=== PATIENT | female | born 1985 | race American Indian/Alaskan Native ===

== ENCOUNTER 2018-03-13 15:56 | Emergency (ER) | payer SELFPAY ==
[2018-03-13 16:33] VITALS: BP 147/93
--- NOTE | 2018-03-13 17:18 | Emergency Department Report ---
ED Female HPI - General Chief complaint: Urogenital-Female Stated complaint: VAGINA BURNING Time Seen by Provider: 03/13/18 17:16 Source: patient Mode of arrival: Ambulatory Limitations: No Limitations - History of Present Illness Initial comments: This is a 32-year-old female nontoxic, well nourished in appearance, no acute signs of distress presents to the ED with c/o of vaginal discharge and dysuria x 1 week. Patient stated she was seen in [place] in her PCP office and was called today with positive gonorrhea. Patient denies any vaginal ulcers or lesions. Patient denies any nausea, vomiting, chest pain, shortness of breathe , fever, chills, headache, back pain, numbness, tingling, stiff neck. Patient denies any other urinary symptoms. Patient states allergies to penicillin with past medical history of hypertension. MD Complaint: dysuria, possible STD -: week(s) (1) Radiation: non-radiating Severity: mild Severity scale (0 -10): 3 Quality: burning Consistency: constant Improves with: none Worsens with: urination Are you Now?: No Associated Symptoms: vaginal discharge, dysuria. denies: vaginal bleeding, abdominal pain, nausea/vomiting, fever/chills, headaches, loss of appetite, hematuria, rash, seizure, shortness of breath, syncope, weakness - Related Data Sexually active: Yes Previous Rx's Medication Instructions Recorded Last Taken Type Sulfamethoxazole/Trimethoprim 1 each PO BID #14 tablet 03/13/18 Unknown Rx [Bactrim DS TAB] Allergies Allergy/AdvReac Type Severity Reaction Status Date / Time Penicillins AdvReac Hives Verified 03/13/18 16:35 ED Review of Systems ROS: Stated complaint: VAGINA BURNING Other details as noted in HPI Constitutional: denies: chills, fever Eyes: denies: eye pain, eye discharge, vision change ENT: denies: ear pain, throat pain Respiratory: denies: cough, shortness of breath, wheezing Cardiovascular: denies: chest pain, palpitations Endocrine: no symptoms reported Gastrointestinal: denies: abdominal pain, nausea, diarrhea Genitourinary: dysuria, discharge. denies: urgency, frequency, hematuria Musculoskeletal: denies: back pain, joint swelling, arthralgia Skin: denies: rash, lesions Neurological: denies: headache, weakness, paresthesias Psychiatric: denies: anxiety, depression Hematological/Lymphatic: denies: easy bleeding, easy bruising ED Past Medical Hx - Past Medical History Previous Medical History?: Yes Hx Hypertension: Yes - Surgical History Past Surgical History?: No - Social History Smoking Status: Never Smoker Substance Use Type: Alcohol - Medications Home Medications: Home Medications Medication Instructions Recorded Confirmed Last Taken Type Sulfamethoxazole/Trimethoprim 1 each PO BID #14 tablet 03/13/18 Unknown Rx [Bactrim DS TAB] ED Physical Exam - General Limitations: No Limitations General appearance: alert, in no apparent distress - Head Head exam: Present: atraumatic, normocephalic - Eye Eye exam: Present: normal appearance Pupils: Present: normal accommodation - ENT ENT exam: Present: normal exam, mucous membranes moist - Neck Neck exam: Present: normal inspection, full ROM. Absent: tenderness, meningismus, lymphadenopathy - Respiratory Respiratory exam: Present: normal lung sounds bilaterally. Absent: respiratory distress, wheezes, rales, rhonchi, stridor, chest wall tenderness, accessory muscle use, decreased breath sounds, prolonged expiratory - Cardiovascular Cardiovascular Exam: Present: regular rate, normal rhythm, normal heart sounds. Absent: bradycardia, tachycardia, irregular rhythm, systolic murmur, diastolic murmur, rubs, gallop - GI/Abdominal GI/Abdominal exam: Present: soft, normal bowel sounds. Absent: distended, tenderness, guarding, rebound, rigid, diminished bowel sounds - Rectal Rectal exam: Present: deferred - External exam: Present: normal external exam, other (precinct commanding officer Trudy RN present during exam). Absent: erythema, swelling, lesions, lacerations, ecchymosis, bleeding Speculum exam: Present: normal speculum exam, cervical discharge, other ( precinct commanding officer Trudy RN present during exam). Absent: erythema, vaginal discharge, vaginal bleeding, foreign body, tissue, laceration Bi-manual exam: Present: normal bi-manual exam, other (precinct commanding officer Trudy RN present during exam). Absent: cervical motion tendernes, adnexal tenderness, adnexal mass, uterine enlargement, uterine tenderness - Extremities Exam Extremities exam: Present: normal inspection, full ROM, normal capillary refill. Absent: tenderness - Back Exam Back exam: Present: normal inspection, full ROM - Neurological Exam Neurological exam: Present: alert, oriented X3, normal gait - Psychiatric Psychiatric exam: Present: normal affect, normal mood - Skin Skin exam: Present: warm, dry, intact, normal color. Absent: rash ED Course Vital Signs 03/13/18 16:26 Temperature 97.9 F Pulse Rate 74 Respiratory 18 Rate Blood Pressure 147/93 O2 Sat by Pulse 100 Oximetry - Reevaluation(s) Reevaluation #1: 03/13/18 18:42 Patient is speaking in full sentences with no signs of distress noted. ED Medical Decision Making - Medical Decision Making This is a 29-year-old female that presents with possible STD. Patient is stable was examined by me. There is no abdominal tenderness. No pelvic pain. UA obtained. Wet prep obtained. Gonorrhea chlamydia swab pending. Patient was instructed to return in 3-5 days for GC results. Patient wanted empirical treatment so patient received 240 mg gentamicin due to penicillin allergies and 2 g of azithromycin by mouth. As per UpToDate: Other azithromycin combinations Other combination regimens that include azithromycin with a second, non- cephalosporin agent appear promising, but adverse effects, availability, and toxicities may limit their use. For patients with severe cephalosporin allergies , gemifloxacin (320 mg orally once) plus azithromycin (2 g orally once) or gentamicin (240 mg intramuscularly once) plus azithromycin (2 g orally once) can be used as alternate regimens. Patient was instructed to Follow-up with a primary care doctor in 3-5 days or if symptoms worsen and continue return to emergency room as soon as possible. At time of discharge, the patient does not seem toxic or ill in appearance. No acute signs of distress noted. Patient agrees to discharge treatment plan of care. No further questions noted by the patient. Critical care attestation.: If time is entered above; I have spent that time in minutes in the direct care of this critically ill patient, excluding procedure time. ED Disposition Clinical Impression: Dysuria, Possible exposure to STD Disposition: DC-01 TO HOME OR SELFCARE Is pt being admited?: No Does the pt Need Aspirin: No Condition: Stable Instructions: Safe Sex (ED) Additional Instructions: Follow-up with a primary care doctor in 3-5 days or if symptoms worsen and continue return to emergency room as soon as possible. Return in 3-5 days for STD results Prescriptions: Sulfamethoxazole/Trimethoprim [Bactrim DS TAB] 1 each PO BID #14 tablet Referrals: PRIMARY CARE, [Primary Care Provider] - 3-5 Days FRANC VIRK MD [Staff Physician] - 3-5 Days [facility] [Outside] - 3-5 Days [facility] [Outside] - 3-5 Days Forms: Work/School Release Form(ED)
[2018-03-13 17:33] LABS: HCG Qualitative,Urine Negative (Negative)
[2018-03-13 17:35] LABS: Bilirubin,Urine NEG (Negative); Blood,Urine NEG (Negative); Color,Urine Yellow (Yellow); Mucus,Urine FEW /HPF; Urobilinogen,Urine < 2.0 mg/dL (<2.0)
[2018-03-13] MEDS ORDERED: ZITHROMAX PO ONE ×2 (18:25→18:31)
[2018-03-13] MEDS ORDERED: GARAMYCIN IM ONE ×2 (18:31→18:33)
== END 2018-03-13 18:47 | disposition home or self-care (01) ==
LOC: ED 15:56
DX: Z20.2 Contact with and (suspected) exposure to infections with a predominantly sexual mode of transmission (principal); I10 Essential (primary) hypertension
CPT/HCPCS: 81001; 81025; 87210; 87591; 96372; 99283; J1580

== ENCOUNTER 2019-01-21 19:39 | Emergency (ER) | payer OTHER ==
--- NOTE | 2019-01-21 21:05 | Emergency Department Report ---
Blank Doc - Documentation Documentation: This is a 33-year-old female that presents with pelvic pain and vaginal bleedi ng. This initial assessment/diagnostic orders/clinical plan/treatment(s) is/are subject to change based on patient's health status, clinical progression and re- assessment by fellow clinical providers in the ED. Further treatment and workup at subsequent clinical providers discretion. Patient/guardians urged not to elope from the ED as their condition may be serious if not clinically assessed and managed. Initial orders include: 1- Patient sent to [facility] for further evaluation and treatment 2- labs 3- UA
[2019-01-21 21:06] VITALS: BP 149/81
[2019-01-21 21:26] LABS: Basophils # (Auto) 0.1 K/mm3 (0.0-0.1); Basophils % (Auto) 1.3 % (0.0-1.8); Eosinophils # (Auto) 0.2 K/mm3 (0.0-0.4); Eosinophils % (Auto) 4.6 % (0.0-4.3); Hematocrit 34.7 % (30.3-42.9); Lymphocytes # (Auto) 1.8 K/mm3 (1.2-5.4); Lymphocytes % (Auto) 33.6 % (13.4-35.0); Mean Corpuscular HGB Conc 32 % (30-34); Mean Corpuscular Volume 78 fl (79-97); Monocytes # (Auto) 0.5 K/mm3 (0.0-0.8); Monocytes % (Auto) 9.8 % (0.0-7.3); Platelet Count 235 K/mm3 (140-440); Red Blood Count 4.46 M/mm3 (3.65-5.03); Red Cell Distribution Width 15.8 % (13.2-15.2)
[2019-01-21 21:35] LABS: BUN/Creatinine Ratio 21; Blood Urea Nitrogen 21 mg/dL (7-17); Calcium 8.5 mg/dL (8.4-10.2); Hemolysis Index 6
[2019-01-21 22:19] LABS: Bilirubin,Urine NEG (Negative); Blood,Urine SM (Negative); Color,Urine Yellow (Yellow); Mucus,Urine FEW /HPF; RBC,Urine < 1.0 /HPF (0.0-6.0); Urobilinogen,Urine < 2.0 mg/dL (<2.0)
[2019-01-21 22:22] LABS: HCG Qualitative,Urine Negative (Negative)
== END 2019-01-21 23:00 | disposition left against medical advice (07) ==
LOC: ED 19:39
DX: R10.30 Lower abdominal pain, unspecified (principal); Z53.21 Procedure and treatment not carried out due to patient leaving prior to being seen by health care provider
CPT/HCPCS: 36415; 80048; 81001; 81025; 85025

== ENCOUNTER 2019-01-28 12:18 | Emergency (ER) | payer SELFPAY ==
--- NOTE | 2019-01-28 13:05 | Emergency Department Report ---
Blank Doc - Documentation Documentation: This is a 33-year-old female that presents with pelvic pain and vaginal discha rge. This initial assessment/diagnostic orders/clinical plan/treatment(s) is/are subject to change based on patient's health status, clinical progression and re- assessment by fellow clinical providers in the ED. Further treatment and workup at subsequent clinical providers discretion. Patient/guardians urged not to elope from the ED as their condition may be serious if not clinically assessed a nd managed. Initial orders include: 1- Patient sent to [facility] for further evaluation and treatment 2- wet prep 3- UA
[2019-01-28 13:08] VITALS: BP 140/79
[2019-01-28 14:47] LABS: Bilirubin,Urine NEG (Negative); Blood,Urine NEG (Negative); Color,Urine Yellow (Yellow); Mucus,Urine FEW /HPF; Urobilinogen,Urine < 2.0 mg/dL (<2.0)
[2019-01-28 14:48] LABS: HCG Qualitative,Urine Negative (Negative)
== END 2019-01-28 14:45 | disposition left against medical advice (07) ==
LOC: ED 12:18
DX: M79.10 Myalgia, unspecified site (principal); Z53.21 Procedure and treatment not carried out due to patient leaving prior to being seen by health care provider
CPT/HCPCS: 81001; 81025

== ENCOUNTER 2019-02-03 14:32 | Emergency (ER) | payer OTHER ==
--- NOTE | 2019-02-03 14:51 | Emergency Department Report ---
Chief Complaint: Urogenital-Female Stated Complaint: VAGINAL PAIN/SWOLLEN Time Seen by Provider: 02/03/19 14:48 - HPI History of Present Illness: This is a 33 y.o. female that reports vaginal pain and itching x 2 days. She also reports pelvic pressure, bumps, and swelling. Concerned of possible STD. LMP 10/29/18, A1 miscarriage PMH: HTN - Exam Vital Signs: Vital Signs 02/03/19 14:38 Temperature 97.9 F Pulse Rate 73 Respiratory 18 Rate Blood Pressure 130/88 O2 Sat by Pulse 100 Oximetry MSE screening note: Focused history and physical exam performed. Due to findings the following was ordered: urinalysis ED Disposition for MSE Condition: Stable
[2019-02-03 15:57] LABS: Bilirubin,Urine NEG (Negative); Blood,Urine SM (Negative); Color,Urine Yellow (Yellow); HCG Qualitative,Urine Negative (Negative); Mucus,Urine FEW /HPF; Urobilinogen,Urine < 2.0 mg/dL (<2.0)
--- NOTE | 2019-02-03 17:20 | Emergency Department Report ---
ED Female HPI - General Chief complaint: Urogenital-Female Stated complaint: VAGINAL PAIN/SWOLLEN Time Seen by Provider: 02/03/19 14:48 Source: patient Mode of arrival: Ambulatory Limitations: No Limitations - History of Present Illness Initial comments: Pt is a 33 yo female who presents to the ED with c/o vaginal itching, irritation, and edema that began 01/31/19. she has associated suprapubic pressure and pressure when she urinates. she denies any vaginal discharge, urinary frequency, N/V, or fever. she states she has also noticed a non painful bump to the vaginal area. she states she is sexually active with one partner. Pt states her LNMP was in oct, states she had a miscarriage in November and has not had a cycle since then. her [employer] that she has been seeing is Dr. Luna. PMHx of HTN. - Related Data Previous Rx's Medication Instructions Recorded Last Taken Type Sulfamethoxazole/Trimethoprim 1 each PO BID #14 tablet 03/13/18 Unknown Rx [Bactrim DS TAB] Dicyclomine [Bentyl] 10 mg PO QID #15 capsule 08/18/18 Unknown Rx Docusate Sodium [Colace] 100 mg PO BID #30 capsule 08/18/18 Unknown Rx Ibuprofen [Motrin] 600 mg PO Q8H PRN #20 tablet 08/18/18 Unknown Rx metroNIDAZOLE [Flagyl] 500 mg PO Q12HR #14 tab 08/18/18 Unknown Rx Metoclopramide [Reglan] 10 mg PO BID PRN #20 tab 12/03/18 Unknown Rx Nitrofurantoin [place]/M-Cryst 100 mg PO Q12HR #14 capsule 12/03/18 Unknown Rx [Macrobid CAP] 21/Iron Fu/Folic Acid 1 each PO DAILY #30 tablet 12/03/18 Unknown Rx [ Complete Caplet] Doxycycline Hyclate [Doxycycline 100 mg PO BID 7 Days #14 tab 02/03/19 Unknown Rx Hyclate TAB] Allergies Allergy/AdvReac Type Severity Reaction Status Date / Time Penicillins AdvReac Hives Verified 03/13/18 16:35 ED Review of Systems ROS: Stated complaint: VAGINAL PAIN/SWOLLEN Other details as noted in HPI Comment: All other systems reviewed and negative ED Past Medical Hx - Past Medical History Hx Hypertension: Yes - Social History Smoking Status: Never Smoker Substance Use Type: None - Medications Home Medications: Home Medications Medication Instructions Recorded Confirmed Last Taken Type Sulfamethoxazole/Trimethoprim 1 each PO BID #14 tablet 03/13/18 Unknown Rx [Bactrim DS TAB] Dicyclomine [Bentyl] 10 mg PO QID #15 capsule 08/18/18 Unknown Rx Docusate Sodium [Colace] 100 mg PO BID #30 capsule 08/18/18 Unknown Rx Ibuprofen [Motrin] 600 mg PO Q8H PRN #20 tablet 08/18/18 Unknown Rx metroNIDAZOLE [Flagyl] 500 mg PO Q12HR #14 tab 08/18/18 Unknown Rx Metoclopramide [Reglan] 10 mg PO BID PRN #20 tab 12/03/18 Unknown Rx Nitrofurantoin [place]/M-Cryst 100 mg PO Q12HR #14 capsule 12/03/18 Unknown Rx [Macrobid CAP] 21/Iron Fu/Folic Acid 1 each PO DAILY #30 tablet 12/03/18 Unknown Rx [ Complete Caplet] Doxycycline Hyclate [Doxycycline 100 mg PO BID 7 Days #14 tab 02/03/19 Unknown Rx Hyclate TAB] ED Physical Exam - General Limitations: No Limitations - Head Head exam: Present: atraumatic, normocephalic - Eye Eye exam: Present: normal appearance - ENT ENT exam: Present: mucous membranes moist - Respiratory Respiratory exam: Present: normal lung sounds bilaterally. Absent: respiratory distress, wheezes, rales, rhonchi, stridor, chest wall tenderness, accessory muscle use, decreased breath sounds, prolonged expiratory - Cardiovascular Cardiovascular Exam: Present: regular rate, normal rhythm, normal heart sounds. Absent: systolic murmur, diastolic murmur, rubs, gallop - GI/Abdominal GI/Abdominal exam: Present: soft, normal bowel sounds. Absent: distended, tenderness, guarding, rebound, rigid - External exam: Present: normal external exam. Absent: erythema, swelling, lesions, lacerations, ecchymosis, bleeding Speculum exam: Present: vaginal discharge (small amount clear/white discharge), cervical discharge (small amount clear white discharge), vaginal bleeding (very smal amount of blood present, pt states she has had some spotting the last couple of days ), other (manufacturing associate: KOREY Reed, no lesions, bumps, or blisters ). Absent: foreign body, tissue, laceration - Back Exam Back exam: Absent: CVA tenderness (R), CVA tenderness (L) - Neurological Exam Neurological exam: Present: alert, oriented X3 - Psychiatric Psychiatric exam: Present: normal affect, normal mood - Skin Skin exam: Present: warm, dry, intact ED Course Vital Signs 02/03/19 02/03/19 14:38 19:39 Temperature 97.9 F 98.4 F Pulse Rate 73 66 Respiratory 18 16 Rate Blood Pressure 130/88 Blood Pressure 147/90 [Left] O2 Sat by Pulse 100 100 Oximetry - Reevaluation(s) Reevaluation #1: 02/03/19 19:27 took over an hour to receive wet prep results ED Medical Decision Making - Lab Data Lab Results 02/03/19 Range/Units Unknown Urine Color Yellow (Yellow) Urine Turbidity Clear (Clear) Urine pH 6.0 (5.0-7.0) Ur Specific [place] 1.014 (1.003-1.030) Urine Protein 100 mg/dl (Negative) mg/dL Urine Glucose (UA) Neg (Negative) mg/dL Urine Ketones Neg (Negative) mg/dL Urine Blood Sm (Negative) Urine Nitrite Neg (Negative) Urine Bilirubin Neg (Negative) Urine Urobilinogen < 2.0 (<2.0) mg/dL Ur Leukocyte Esterase Neg (Negative) Urine WBC (Auto) 2.0 (0.0-6.0) /HPF Urine RBC (Auto) 6.0 (0.0-6.0) /HPF U Epithel Cells (Auto) 1.0 (0-13.0) /HPF Urine Mucus Few /HPF Urine HCG, Qual Negative (Negative) - Medical Decision Making Pt is a 33 yo female who presents to the ED with c/o vaginal itching, irritation, and edema that began 01/31/19. she has associated suprapubic pressure and pressure when she urinates. she denies any vaginal discharge, urinary frequency, N/V, or fever. she states she has also noticed a non painful bump to the vaginal area. she states she is sexually active with one partner. Pt states her LNMP was in oct, states she had a miscarriage in November and has not had a cycle since then. her [employer] that she has been seeing is Dr. Luna. PMHx of HTN. wet prep is negative. UA is negative. pt swabbed for G/C and given azithromycin. no lesions or bumps on examination. due to pencillin allergy pt was given prescription for doxycycline. advised to take as prescribed. advised pt she could receive her results in one week from medical records. partner needs to be tested and treated. abstain from sexual intercourse for 10 days. if concerned for other STDs be seen by health department, [employer] [facility], or PCP. Follow up with Dr. Luna, [employer] [facility] for further evaluation of pelvic discomfort. no CMT or abd tenderness on exam. return to the ED for any new or worsening symptoms. Critical care attestation.: If time is entered above; I have spent that time in minutes in the direct care of this critically ill patient, excluding procedure time. ED Disposition Clinical Impression: Vaginal pain, Screen for STD (sexually transmitted disease) Disposition: TO HOME OR SELFCARE Is pt being admited?: No Does the pt Need Aspirin: No Condition: Stable Additional Instructions: Please follow up with your [employer] [facility] in the next 2-3 days. please take all medication as prescribed. follow up with your primary care doctor in the next 2- 3 days. return to the emergency room for any new or worsening symptoms. abstain from sexual intercourse for 10 days. have partner tested as well. if concerned for any other STDs be seen by health department, primary care, or [employer] [employer] [facility]. Prescriptions: Doxycycline Hyclate [Doxycycline Hyclate TAB] 100 mg PO BID 7 Days #14 tab Referrals: DAVID SIMMS MD [Primary Care Provider] - 2-3 Days LEROY LUNA MD [Staff Physician] - 2-3 Days Time of Disposition: 19:23 Print Language: INDONESIAN
[2019-02-03] MEDS ORDERED: ZITHROMAX PO ONE (17:57)
[2019-02-03 19:40] VITALS: BP 147/90
== END 2019-02-03 19:39 | disposition home or self-care (01) ==
LOC: ED 14:32
DX: R10.2 Pelvic and perineal pain (principal); I10 Essential (primary) hypertension; Z88.0 Allergy status to penicillin
CPT/HCPCS: 81001; 81025; 87210; 87591; 99284

== ENCOUNTER 2019-02-28 17:16 | Emergency (ER) | payer OTHER ==
--- NOTE | 2019-02-28 17:44 | Emergency Department Report ---
Blank Doc - Documentation Documentation: This is a 33-year-old female that presents with left pelvic pain with n/v. This initial assessment/diagnostic orders/clinical plan/treatment(s) is/are subject to change based on patient's health status, clinical progression and re- assessment by fellow clinical providers in the ED. Further treatment and workup at subsequent clinical providers discretion. Patient/guardians urged not to elope from the ED as their condition may be serious if not clinically assessed and managed. Initial orders include: 1- Patient sent to [facility] for further evaluation and treatment 2- UA 3- labs
[2019-02-28 17:45] VITALS: BP 124/84
[2019-02-28 18:29] LABS: Basophils # (Auto) 0.1 K/mm3 (0.0-0.1); Basophils % (Auto) 1.2 % (0.0-1.8); Eosinophils # (Auto) 0.2 K/mm3 (0.0-0.4); Eosinophils % (Auto) 3.5 % (0.0-4.3); Hematocrit 38.3 % (30.3-42.9); Hemoglobin 12.4 gm/dl (10.1-14.3); Lymphocytes # (Auto) 1.9 K/mm3 (1.2-5.4); Lymphocytes % (Auto) 38.8 % (13.4-35.0); Mean Corpuscular HGB Conc 32 % (30-34); Mean Corpuscular Volume 79 fl (79-97); Monocytes # (Auto) 0.4 K/mm3 (0.0-0.8); Monocytes % (Auto) 8.6 % (0.0-7.3); Platelet Count 268 K/mm3 (140-440); Red Blood Count 4.87 M/mm3 (3.65-5.03)
[2019-02-28 19:16] LABS: Alanine Aminotransferase 17 units/L (7-56); Albumin 4.1 g/dL (3.9-5); BUN/Creatinine Ratio 18; Blood Urea Nitrogen 18 mg/dL (7-17); Calcium 9.1 mg/dL (8.4-10.2); Hemolysis Index 49
[2019-02-28 21:25] LABS: Bilirubin,Urine NEG (Negative); Blood,Urine NEG (Negative); Color,Urine Yellow (Yellow); Mucus,Urine FEW /HPF
[2019-02-28] MEDS ORDERED: NACL 0.9% 1000 ML 1,000 ML IV ONE (21:42)
--- NOTE | 2019-02-28 22:05 | Emergency Department Report ---
ED Abdominal Pain HPI - General Chief Complaint: Abdominal Pain Stated Complaint: LT SIDE PAIN/NAUSEA Time Seen by Provider: 02/28/19 17:43 Source: patient Mode of arrival: Ambulatory Limitations: No Limitations - History of Present Illness Initial Comments: 33-year-old male comes in with intermittent abdominal pain is located on the left lower quadrant today. Patient does admit to nausea and vomiting since last week. Last menstrual period was sometime in October had a miscarriage 2 months ago. Currently on no control she has no fever no chills. Patient has no past medical history currently takes no medications on a daily basis has no k nown drug allergies. 2 para 1 MD Complaint: abdominal pain -: This afternoon Location: LLQ Radiation: none Quality: other (pressure) Consistency: intermittent Improves With: nothing Worsens With: nothing Associated Symptoms: nausea, vomiting - Related Data LMP (females 10-50): 2 months Previous Rx's Medication Instructions Recorded Last Taken Type Sulfamethoxazole/Trimethoprim 1 each PO BID #14 tablet 03/13/18 Unknown Rx [Bactrim DS TAB] Dicyclomine [Bentyl] 10 mg PO QID #15 capsule 08/18/18 Unknown Rx Docusate Sodium [Colace] 100 mg PO BID #30 capsule 08/18/18 Unknown Rx Ibuprofen [Motrin] 600 mg PO Q8H PRN #20 tablet 08/18/18 Unknown Rx metroNIDAZOLE [Flagyl] 500 mg PO Q12HR #14 tab 08/18/18 Unknown Rx Metoclopramide [Reglan] 10 mg PO BID PRN #20 tab 12/03/18 Unknown Rx Nitrofurantoin [place]/M-Cryst 100 mg PO Q12HR #14 capsule 12/03/18 Unknown Rx [Macrobid CAP] 21/Iron Fu/Folic Acid 1 each PO DAILY #30 tablet 12/03/18 Unknown Rx [ Complete Caplet] Doxycycline Hyclate [Doxycycline 100 mg PO BID 7 Days #14 tab 02/03/19 Unknown Rx Hyclate TAB] Ondansetron [Zofran Odt] 4 mg PO Q8HR PRN #12 tab.rapdis 02/28/19 Unknown Rx Allergies Allergy/AdvReac Type Severity Reaction Status Date / Time Penicillins AdvReac Hives Verified 03/13/18 16:35 ED Review of Systems ROS: Stated complaint: LT SIDE PAIN/NAUSEA Other details as noted in HPI Comment: All other systems reviewed and negative Cardiovascular: denies: chest pain, palpitations Endocrine: no symptoms reported Gastrointestinal: abdominal pain (llq), nausea, vomiting Genitourinary: denies: urgency, dysuria, discharge Musculoskeletal: denies: back pain, joint swelling, arthralgia Skin: denies: rash, lesions ED Past Medical Hx - Past Medical History Hx Hypertension: Yes - Surgical History Past Surgical History?: No - Social History Smoking Status: Never Smoker Substance Use Type: None - Medications Home Medications: Home Medications Medication Instructions Recorded Confirmed Last Taken Type Sulfamethoxazole/Trimethoprim 1 each PO BID #14 tablet 03/13/18 Unknown Rx [Bactrim DS TAB] Dicyclomine [Bentyl] 10 mg PO QID #15 capsule 08/18/18 Unknown Rx Docusate Sodium [Colace] 100 mg PO BID #30 capsule 08/18/18 Unknown Rx Ibuprofen [Motrin] 600 mg PO Q8H PRN #20 tablet 08/18/18 Unknown Rx metroNIDAZOLE [Flagyl] 500 mg PO Q12HR #14 tab 08/18/18 Unknown Rx Metoclopramide [Reglan] 10 mg PO BID PRN #20 tab 12/03/18 Unknown Rx Nitrofurantoin [place]/M-Cryst 100 mg PO Q12HR #14 capsule 12/03/18 Unknown Rx [Macrobid CAP] 21/Iron Fu/Folic Acid 1 each PO DAILY #30 tablet 12/03/18 Unknown Rx [ Complete Caplet] Doxycycline Hyclate [Doxycycline 100 mg PO BID 7 Days #14 tab 02/03/19 Unknown Rx Hyclate TAB] Ondansetron [Zofran Odt] 4 mg PO Q8HR PRN #12 tab.rapdis 02/28/19 Unknown Rx ED Physical Exam - General Limitations: No Limitations General appearance: alert, in no apparent distress - Head Head exam: Present: atraumatic, normocephalic - Eye Eye exam: Present: normal appearance - ENT ENT exam: Present: mucous membranes moist - Neck Neck exam: Present: normal inspection - Respiratory Respiratory exam: Present: normal lung sounds bilaterally. Absent: respiratory distress - Cardiovascular Cardiovascular Exam: Present: regular rate, normal rhythm. Absent: systolic murmur, diastolic murmur, rubs, gallop - GI/Abdominal GI/Abdominal exam: Present: soft, normal bowel sounds. Absent: distended, tenderness, guarding - Extremities Exam Extremities exam: Present: normal inspection - Back Exam Back exam: Present: normal inspection - Neurological Exam Neurological exam: Present: alert, oriented X3 - Psychiatric Psychiatric exam: Present: normal affect, normal mood - Skin Skin exam: Present: warm, dry, intact, normal color. Absent: rash ED Course Vital Signs 02/28/19 17:43 Temperature 98.2 F Pulse Rate 73 Respiratory 15 Rate Blood Pressure 124/84 [Left] O2 Sat by Pulse 100 Oximetry ED Medical Decision Making - Lab Data Result diagrams: 02/28/19 18:15 02/28/19 18:15 - Medical Decision Making 33-year-old female comes in for left sided intermittent abdominal pain more like pressure 1 day with nausea and vomiting times a week. Urinalysis is positive for protein. CBC is within normal limits CMP shows a patient with elevated BU 118 creatinine of 1.0. Patient is able to hold down fluids. We will discharge patient home with a prescription for Zofran to follow up with her primary care provider. Critical care attestation.: If time is entered above; I have spent that time in minutes in the direct care of this critically ill patient, excluding procedure time. ED Disposition Clinical Impression: Abdominal pain Disposition: DC-01 TO HOME OR SELFCARE Is pt being admited?: No Does the pt Need Aspirin: No Condition: Stable Instructions: Abdominal Pain (ED) Additional Instructions: Please take Zofran as needed for nausea and vomiting. Follow up with her prima ry care provider if his symptoms persist or gets worse. Prescriptions: Ondansetron [Zofran Odt] 4 mg PO Q8HR PRN #12 tab.rapdis PRN Reason: Nausea And Vomiting Referrals: ARLINE LOO MD [Primary Care Provider] - 3-5 Days Forms: Work/School Release Form(ED)
[2019-02-28] MEDS ORDERED: TYLENOL PO ONE (22:07)
[2019-02-28] MEDS ORDERED: ZOFRAN ODT PO ONE (22:38)
== END 2019-02-28 23:15 | disposition home or self-care (01) ==
LOC: ED 17:16
DX: R10.32 Left lower quadrant pain (principal); R11.2 Nausea with vomiting, unspecified; I10 Essential (primary) hypertension; Z79.1 Long term (current) use of non-steroidal anti-inflammatories (NSAID); Z88.0 Allergy status to penicillin; Z79.899 Other long term (current) drug therapy
CPT/HCPCS: 36415; 80053; 81001; 83690; 84703; 85025; 99283; Q0162

== ENCOUNTER 2019-09-05 19:02 | Emergency (ER) | payer OTHER ==
[2019-09-05 22:33] LABS: HCG Qualitative,Urine Negative (Negative)
[2019-09-05 22:39] LABS: Bacteria,Urine 2+ /HPF (Negative); Bilirubin,Urine NEG (Negative); Blood,Urine SM (Negative); Color,Urine Yellow (Yellow); Mucus,Urine 1+ /HPF; Urobilinogen,Urine < 2.0 mg/dL (<2.0)
[2019-09-05 22:54] LABS: WBC,Urine > 182.0 /HPF (0.0-6.0)
--- NOTE | 2019-09-06 03:36 | Emergency Department Report ---
HPI - General Chief Complaint: Urogenital-Female Time Seen by Provider: 09/06/19 02:57 - HPI HPI: 34-year-old female presents to the emergency department with a complaint of a 3 day history of burning with urination, and malodorous vaginal discharge. Patient says that she is not sexually active. However she does admit to using different feminine products in and around her vagina. She denies any fever, pelvic or abdominal pain, nausea or vomiting. She has a past medical history of hypertension. She admits to a previous history of bacterial vaginosis. She does not have a primary care physician. Her MARKET DEVELOPMENT MANAGER is Dr. Jose Alfredo Luna. She has not taken anything for her symptoms prior to arrival today. ED Past Medical Hx - Past Medical History Previous Medical History?: Yes Hx Hypertension: Yes - Surgical History Past Surgical History?: No - Social History Smoking Status: Former Smoker Substance Use Type: None - Medications Home Medications: Home Medications Medication Instructions Recorded Confirmed Last Taken Type Sulfamethoxazole/Trimethoprim 1 each PO BID #14 tablet 03/13/18 Unknown Rx [Bactrim DS TAB] Dicyclomine [Bentyl] 10 mg PO QID #15 capsule 08/18/18 Unknown Rx Docusate Sodium [Colace] 100 mg PO BID #30 capsule 08/18/18 Unknown Rx Ibuprofen [Motrin] 600 mg PO Q8H PRN #20 tablet 08/18/18 Unknown Rx Metoclopramide [Reglan] 10 mg PO BID PRN #20 tab 12/03/18 Unknown Rx 21/Iron Fu/Folic Acid 1 each PO DAILY #30 tablet 12/03/18 Unknown Rx [ Complete Caplet] Doxycycline Hyclate [Doxycycline 100 mg PO BID 7 Days #14 tab 02/03/19 Unknown Rx Hyclate TAB] Ondansetron [Zofran Odt] 4 mg PO Q8HR PRN #12 tab.rapdis 02/28/19 Unknown Rx Nitrofurantoin [place]/M-Cryst 100 mg PO Q12HR #14 capsule 09/06/19 Unknown Rx [Macrobid CAP] metroNIDAZOLE [Flagyl TAB] 500 mg PO Q12HR #14 tab 09/06/19 Unknown Rx ED Review of Systems ROS: Stated complaint: VAGINAL DISCOMFORT Other details as noted in HPI Comment: All other systems reviewed and negative Constitutional: denies: chills, fever Gastrointestinal: denies: abdominal pain, vomiting Genitourinary: dysuria, discharge Musculoskeletal: denies: back pain Skin: denies: rash, lesions Physical Exam - Physical Exam Vital Signs: Vital Signs 09/05/19 20:16 Temperature 99.6 F Pulse Rate 68 Respiratory 18 Rate Blood Pressure 150/82 O2 Sat by Pulse 100 Oximetry Physical Exam: GENERAL: The patient is well-developed well-nourished. HEENT: Normocephalic. Atraumatic. Patient has moist mucous membranes. EYES: Extraocular motions are intact. NECK: Supple. Trachea is midline ABDOMEN: Abdomen is soft, nontender. There is no abdominal distention. SKIN: Skin is warm and dry. NEURO: The patient is awake, alert, and oriented. The patient is cooperative. Normal speech. MUSCULOSKELETAL: There is no tenderness or deformity. There is no evidence of acute injury. : There is some mild malodorous thin white discharge seen in the vagina. ED Course Vital Signs 09/05/19 20:16 Temperature 99.6 F Pulse Rate 68 Respiratory 18 Rate Blood Pressure 150/82 O2 Sat by Pulse 100 Oximetry - Reevaluation(s) Reevaluation #1: Pelvic examination was done with nurse Stanton at bedside for assistance and bricklayer supervisor. 09/06/19 03:35 ED Medical Decision Making - Medical Decision Making This patient presents with some dysuria and vaginal discharge. Urinalysis shows a urinary tract infection. She will be started on Macrobid. A pelvic examination was done with wet prep secondary to the discharge. Negative for trichomoniasis, yeast but positive for bacterial vaginosis. She will be started on Flagyl. She has good follow-up with MARKET DEVELOPMENT MANAGER. Vital signs stable including being afebrile. - Differential Diagnosis UTI, BV, vulvovaginal candidiasis, trichomoniasis Critical Care Time: No Critical care attestation.: If time is entered above; I have spent that time in minutes in the direct care of this critically ill patient, excluding procedure time. ED Disposition Clinical Impression: Bacterial vaginosis UTI (urinary tract infection) Qualifiers: Urinary tract infection type: acute cystitis Hematuria presence: without hematuria Qualified Code(s): N30.00 - Acute cystitis without hematuria Disposition: TO HOME OR SELFCARE Is pt being admited?: No Condition: Stable Instructions: Bacterial Vaginosis (ED), Urinary Tract Infection in Women (ED) Additional Instructions: Please follow-up with your primary care physician and MARKET DEVELOPMENT MANAGER in the next few days. Return to the emergency Department with any worsening of your symptoms or any acute distress. Take the antibiotics as prescribed. One of your medications, Flagyl/metronidazole, has a very severe and bad reaction if it is mixed with alcohol of any quantity. Therefore please do not drink any alcohol of any quantity for up to 2 days after completing the Flagyl. Prescriptions: metroNIDAZOLE [Flagyl TAB] 500 mg PO Q12HR #14 tab Nitrofurantoin [place]/M-Cryst [Macrobid CAP] 100 mg PO Q12HR #14 capsule Referrals: JOSE ALFREDO LUNA MD [Primary Care Provider] - 3-5 Days Time of Disposition: 03:49
[2019-09-06 04:06] VITALS: BP 146/89
== END 2019-09-06 04:06 | disposition home or self-care (01) ==
LOC: ED 19:02
DX: N76.0 Acute vaginitis (principal); B96.89 Other specified bacterial agents as the cause of diseases classified elsewhere; N39.0 Urinary tract infection, site not specified
CPT/HCPCS: 81001; 81025; 87210; 87591

== ENCOUNTER 2020-08-02 11:21 | Emergency (ER) | payer SELFPAY ==
[2020-08-02 11:42] VITALS: BP 141/76
== END 2020-08-02 12:21 | disposition left against medical advice (07) ==
LOC: ED 11:21
DX: R21 Rash and other nonspecific skin eruption (principal); Z53.21 Procedure and treatment not carried out due to patient leaving prior to being seen by health care provider

== ENCOUNTER 2020-08-25 11:01 | Emergency (ER) | payer SELFPAY ==
[2020-08-25 11:42] VITALS: BP 128/82
== END 2020-08-25 18:02 | disposition left against medical advice (07) ==
LOC: ED 11:01
DX: R39.198 Other difficulties with micturition (principal); Z53.21 Procedure and treatment not carried out due to patient leaving prior to being seen by health care provider

== ENCOUNTER 2021-03-10 08:36 | Emergency (ER) | payer SELFPAY ==
--- NOTE | 2021-03-10 12:32 | Emergency Department Report ---
ED General Adult HPI - General Chief complaint: Weakness Stated complaint: WEAK, TIRED, BODY PAINS Time Seen by Provider: 03/10/21 11:51 Source: patient Mode of arrival: Ambulatory Limitations: No Limitations - History of Present Illness Initial comments: 35-year-old -Citizen Of [place] female patient presents with complaints of fatigue, nausea, and lower abdominal pain x4 days. Past history of hypertension per patient. She denies any vomiting, diarrhea, constipation, fever/chills/sweats, cough, chest pain, or shortness of breath. She reports she had a negative Covid test performed on Monday. She does admit to urinary frequency dysuria, but denies any vaginal discharge, vaginal bleeding, or dyspareunia. She rates her pain as a 3/10 in severity and describes it as achy. -: Sudden - Related Data Previous Rx's Medication Instructions Recorded Last Taken Type Sulfamethoxazole/Trimethoprim 1 each PO BID #14 tablet 03/13/18 Unknown Rx [Bactrim DS TAB] Dicyclomine [Bentyl] 10 mg PO QID #15 capsule 08/18/18 Unknown Rx Ibuprofen [Motrin] 600 mg PO Q8H PRN #20 tablet 08/18/18 Unknown Rx Metoclopramide [Reglan] 10 mg PO BID PRN #20 tab 12/03/18 Unknown Rx 21/Iron Fu/Folic Acid 1 each PO DAILY #30 tablet 12/03/18 Unknown Rx [ Complete Caplet] Doxycycline Hyclate [Doxycycline 100 mg PO BID 7 Days #14 tab 02/03/19 Unknown Rx Hyclate TAB] Nitrofurantoin [place]/M-Cryst 100 mg PO Q12HR #14 capsule 09/06/19 Unknown Rx [Macrobid CAP] metroNIDAZOLE [Flagyl TAB] 500 mg PO Q12HR #14 tab 09/06/19 Unknown Rx Docusate Sodium [Colace CAP] 100 mg PO BID #30 capsule 03/08/20 Unknown Rx Ondansetron [Zofran ODT TAB] 4 mg PO Q8HR PRN #12 tab.rapdis 03/08/20 Unknown Rx Allergies Allergy/AdvReac Type Severity Reaction Status Date / Time Penicillins AdvReac Hives Verified 03/08/20 14:21 ED Review of Systems ROS: Stated complaint: WEAK, TIRED, BODY PAINS Other details as noted in HPI Constitutional: malaise, weakness. denies: chills, diaphoresis, fever ENT: denies: throat pain Respiratory: denies: cough, shortness of breath Cardiovascular: denies: chest pain Gastrointestinal: abdominal pain, nausea. denies: vomiting, diarrhea, constipation, hematemesis, melena, hematochezia Genitourinary: dysuria, frequency. denies: urgency, hematuria, discharge, abnormal menses, dyspareunia Skin: denies: change in color Neurological: headache (Intermittent mild headaches per patient, denies any current headache) Hematological/Lymphatic: denies: swollen glands ED Past Medical Hx - Past Medical History Hx Hypertension: Yes - Surgical History Past Surgical History?: No - Social History Smoking Status: Never Smoker Substance Use Type: None - Medications Home Medications: Home Medications Medication Instructions Recorded Confirmed Last Taken Type Sulfamethoxazole/Trimethoprim 1 each PO BID #14 tablet 03/13/18 Unknown Rx [Bactrim DS TAB] Dicyclomine [Bentyl] 10 mg PO QID #15 capsule 08/18/18 Unknown Rx Ibuprofen [Motrin] 600 mg PO Q8H PRN #20 tablet 08/18/18 Unknown Rx Metoclopramide [Reglan] 10 mg PO BID PRN #20 tab 12/03/18 Unknown Rx 21/Iron Fu/Folic Acid 1 each PO DAILY #30 tablet 12/03/18 Unknown Rx [ Complete Caplet] Doxycycline Hyclate [Doxycycline 100 mg PO BID 7 Days #14 tab 02/03/19 Unknown Rx Hyclate TAB] Nitrofurantoin [place]/M-Cryst 100 mg PO Q12HR #14 capsule 09/06/19 Unknown Rx [Macrobid CAP] metroNIDAZOLE [Flagyl TAB] 500 mg PO Q12HR #14 tab 09/06/19 Unknown Rx Docusate Sodium [Colace CAP] 100 mg PO BID #30 capsule 03/08/20 Unknown Rx Ondansetron [Zofran ODT TAB] 4 mg PO Q8HR PRN #12 tab.rapdis 03/08/20 Unknown Rx ED Physical Exam - General Limitations: No Limitations General appearance: alert, in no apparent distress - Head Head exam: Present: atraumatic, normocephalic - Eye Eye exam: Present: normal appearance. Absent: scleral icterus - Neck Neck exam: Present: normal inspection, full ROM. Absent: lymphadenopathy - Respiratory Respiratory exam: Present: normal lung sounds bilaterally. Absent: respiratory distress - Cardiovascular Cardiovascular Exam: Present: regular rate, normal rhythm. Absent: systolic murmur, diastolic murmur, rubs, gallop - GI/Abdominal GI/Abdominal exam: Present: soft, normal bowel sounds. Absent: distended, tenderness, guarding, rebound, rigid - Rectal Rectal exam: Present: normal rectal tone - Back Exam Back exam: Present: full ROM. Absent: CVA tenderness (R), CVA tenderness (L) - Neurological Exam Neurological exam: Present: alert, oriented X3, normal gait - Psychiatric Psychiatric exam: Present: normal affect, normal mood - Skin Skin exam: Present: warm, dry, intact, normal color. Absent: rash, cyanosis, diaphoretic, pallor, ecchymosis ED Course Vital Signs 03/10/21 03/10/21 08:59 13:09 Temperature 99.0 F 98.5 F Pulse Rate 78 57 L Respiratory 18 14 Rate Blood Pressure 129/74 123/71 O2 Sat by Pulse 100 100 Oximetry ED Medical Decision Making - Lab Data Result diagrams: 03/10/21 12:08 03/10/21 12:08 Lab Results 03/10/21 03/10/21 03/10/21 Range/Units 12:08 12:08 12:08 WBC 4.6 (4.5-11.0) K/mm3 RBC 5.07 H (3.65-5.03) M/mm3 Hgb 12.8 (10.1-14.3) gm/dl Hct 39.9 (30.3-42.9) % MCV 79 (79-97) fl MCH 25 L (28-32) pg MCHC 32 (30-34) % RDW 14.3 (13.2-15.2) % Plt Count 221 (140-440) K/mm3 Lymph % (Auto) 32.0 (13.4-35.0) % Lynn % (Auto) 8.7 H (0.0-7.3) % Eos % (Auto) 2.2 (0.0-4.3) % Baso % (Auto) 0.9 (0.0-1.8) % Lymph # (Auto) 1.5 (1.2-5.4) K/mm3 Lynn # (Auto) 0.4 (0.0-0.8) K/mm3 Eos # (Auto) 0.1 (0.0-0.4) K/mm3 Baso # (Auto) 0.0 (0.0-0.1) K/mm3 Seg Neutrophils % 56.2 (40.0-70.0) % Seg Neutrophils # 2.6 (1.8-7.7) K/mm3 Sodium 136 L (137-145) mmol/L Potassium 4.7 (3.6-5.0) mmol/L Chloride 101.2 (98-107) mmol/L Carbon Dioxide 26 (22-30) mmol/L Anion Gap 14 mmol/L BUN 13 (7-17) mg/dL Creatinine 1.0 (0.6-1.2) mg/dL Estimated GFR > 60 ml/min BUN/Creatinine Ratio 13 % Glucose 87 (65-100) mg/dL Calcium 9.4 (8.4-10.2) mg/dL Total Bilirubin 0.40 (0.1-1.2) mg/dL AST 17 (5-40) units/L ALT 12 (7-56) units/L Alkaline Phosphatase 46 (35-129) units/L Total Protein 7.1 (6.3-8.2) g/dL Albumin 4.2 (3.9-5) g/dL Albumin/Globulin Ratio 1.4 % HCG, Qual (Negative) Urine Color Yellow (Yellow) Urine Turbidity Slightly-cloudy (Clear) Urine pH 6.0 (5.0-7.0) Ur Specific [place] 1.014 (1.003-1.030) Urine Protein 100 mg/dl (Negative) mg/dL Urine Glucose (UA) Neg (Negative) mg/dL Urine Ketones Neg (Negative) mg/dL Urine Blood Neg (Negative) Urine Nitrite Neg (Negative) Urine Bilirubin Neg (Negative) Urine Urobilinogen < 2.0 (<2.0) mg/dL Ur Leukocyte Esterase Neg (Negative) Urine WBC (Auto) < 1.0 (0.0-6.0) /HPF Urine RBC (Auto) < 1.0 (0.0-6.0) /HPF U Epithel Cells (Auto) 5.0 (0-13.0) /HPF Urine Bacteria (Auto) 1+ (Negative) /HPF Urine Mucus Few /HPF 03/10/21 Range/Units 12:08 WBC (4.5-11.0) K/mm3 RBC (3.65-5.03) M/mm3 Hgb (10.1-14.3) gm/dl Hct (30.3-42.9) % MCV (79-97) fl MCH (28-32) pg MCHC (30-34) % RDW (13.2-15.2) % Plt Count (140-440) K/mm3 Lymph % (Auto) (13.4-35.0) % Lynn % (Auto) (0.0-7.3) % Eos % (Auto) (0.0-4.3) % Baso % (Auto) (0.0-1.8) % Lymph # (Auto) (1.2-5.4) K/mm3 Lynn # (Auto) (0.0-0.8) K/mm3 Eos # (Auto) (0.0-0.4) K/mm3 Baso # (Auto) (0.0-0.1) K/mm3 Seg Neutrophils % (40.0-70.0) % Seg Neutrophils # (1.8-7.7) K/mm3 Sodium (137-145) mmol/L Potassium (3.6-5.0) mmol/L Chloride (98-107) mmol/L Carbon Dioxide (22-30) mmol/L Anion Gap mmol/L BUN (7-17) mg/dL Creatinine (0.6-1.2) mg/dL Estimated GFR ml/min BUN/Creatinine Ratio % Glucose (65-100) mg/dL Calcium (8.4-10.2) mg/dL Total Bilirubin (0.1-1.2) mg/dL AST (5-40) units/L ALT (7-56) units/L Alkaline Phosphatase (35-129) units/L Total Protein (6.3-8.2) g/dL Albumin (3.9-5) g/dL Albumin/Globulin Ratio % HCG, Qual Negative (Negative) Urine Color (Yellow) Urine Turbidity (Clear) Urine pH (5.0-7.0) Ur Specific [place] (1.003-1.030) Urine Protein (Negative) mg/dL Urine Glucose (UA) (Negative) mg/dL Urine Ketones (Negative) mg/dL Urine Blood (Negative) Urine Nitrite (Negative) Urine Bilirubin (Negative) Urine Urobilinogen (<2.0) mg/dL Ur Leukocyte Esterase (Negative) Urine WBC (Auto) (0.0-6.0) /HPF Urine RBC (Auto) (0.0-6.0) /HPF U Epithel Cells (Auto) (0-13.0) /HPF Urine Bacteria (Auto) (Negative) /HPF Urine Mucus /HPF - Medical Decision Making 35-year-old -Citizen [place] female patient presents with complaints of fatigue, nausea, and lower abdominal pain x4 days. Past history of hypertension per patient. She denies any vomiting, diarrhea, constipation, fever/chills/sweats, cough, chest pain, or shortness of breath. She reports she had a negative Covid test performed on Monday. She does admit to urinary frequency dysuria, but denies any vaginal discharge, vaginal bleeding, or dyspareunia. She rates her pain as a 3/10 in severity and describes it as achy. Physical exam is normal. No significant abnormalities noted on CBC, CMP, TSH, or UA. Patient denies any vaginal discharge or dyspareunia. Recommend she follows up with her primary care doctor within 2 days. Her vitals are normal, she is well-appearing, she is stable for discharge home. Strict return precautions were discussed in detail with patient who verbalizes understanding. Critical care attestation.: If time is entered above; I have spent that time in minutes in the direct care of this critically ill patient, excluding procedure time. ED Disposition Clinical Impression: Fatigue, Acute viral syndrome Disposition: TO HOME OR SELFCARE Is pt being admited?: No Condition: Stable Instructions: Fatigue Referrals: ARLINE LOO [Other] - 2-3 Days Forms: Work/School Release Form(ED)
[2021-03-10 13:09] LABS: Basophils % (Auto) 0.9 % (0.0-1.8); Eosinophils # (Auto) 0.1 K/mm3 (0.0-0.4); Eosinophils % (Auto) 2.2 % (0.0-4.3); Hematocrit 39.9 % (30.3-42.9); Hemoglobin 12.8 gm/dl (10.1-14.3); Lymphocytes # (Auto) 1.5 K/mm3 (1.2-5.4); Mean Corpuscular HGB Conc 32 % (30-34); Mean Corpuscular Volume 79 fl (79-97); Monocytes # (Auto) 0.4 K/mm3 (0.0-0.8); Monocytes % (Auto) 8.7 % (0.0-7.3); Platelet Count 221 K/mm3 (140-440); Red Blood Count 5.07 M/mm3 (3.65-5.03); Red Cell Distribution Width 14.3 % (13.2-15.2)
[2021-03-10 13:11] VITALS: BP 123/71
[2021-03-10 13:14] LABS: Alanine Aminotransferase 12 units/L (7-56); Albumin 4.2 g/dL (3.9-5); BUN/Creatinine Ratio 13; Blood Urea Nitrogen 13 mg/dL (7-17); Calcium 9.4 mg/dL (8.4-10.2); Hemolysis Index 4
[2021-03-10 13:18] LABS: Bacteria,Urine 1+ /HPF (Negative); Bilirubin,Urine NEG (Negative); Blood,Urine NEG (Negative); Color,Urine Yellow (Yellow); Mucus,Urine FEW /HPF; Urobilinogen,Urine < 2.0 mg/dL (<2.0); WBC,Urine < 1.0 /HPF (0.0-6.0)
[2021-03-10 13:20] LABS: RBC,Urine < 1.0 /HPF (0.0-6.0)
== END 2021-03-10 14:26 | disposition home or self-care (01) ==
LOC: ED 08:36
DX: B34.9 Viral infection, unspecified (principal); R53.83 Other fatigue; R10.30 Lower abdominal pain, unspecified; I10 Essential (primary) hypertension; Z79.899 Other long term (current) drug therapy
CPT/HCPCS: 36415; 80053; 81001; 84443; 84703; 85025; 99283

== ENCOUNTER 2021-06-20 17:40 | Emergency (ER) | payer MEDICAID ==
--- NOTE | 2021-06-20 18:26 | Emergency Department Report ---
ED General Adult HPI - General Chief complaint: Abdominal Pain Stated complaint: ABD PAIN/VOMITTING Time Seen by Provider: 06/20/21 18:19 Source: patient Mode of arrival: Ambulatory Limitations: No Limitations - History of Present Illness Initial comments: 36-year-old female patient (A1) presents to the emergency department with complaints of abdominal pain, nausea, and vomiting. Patient states the nausea and vomiting have been present for approximately 1 week. The abdominal pain began 3 days ago. The abdominal pain is localized to the lower abdomen. Patient has had approximately 3 episodes of nonbloody emesis in the last 24 hours. Patient's last menstrual cycle was in April. She has not taken a test at home. Denies fever, chills, constipation, diarrhea, urinary symptoms, vaginal bleeding, vaginal discharge. Denies all other complaints at this time. - Related Data Previous Rx's Medication Instructions Recorded Last Taken Type Sulfamethoxazole/Trimethoprim 1 each PO BID #14 tablet 03/13/18 Unknown Rx [Bactrim DS TAB] Dicyclomine [Bentyl] 10 mg PO QID #15 capsule 08/18/18 Unknown Rx Ibuprofen [Motrin] 600 mg PO Q8H PRN #20 tablet 08/18/18 Unknown Rx Metoclopramide [Reglan] 10 mg PO BID PRN #20 tab 12/03/18 Unknown Rx 21/Iron Fu/Folic Acid 1 each PO DAILY #30 tablet 12/03/18 Unknown Rx [ Complete Caplet] Doxycycline Hyclate [Doxycycline 100 mg PO BID 7 Days #14 tab 02/03/19 Unknown Rx Hyclate TAB] Nitrofurantoin [place]/M-Cryst 100 mg PO Q12HR #14 capsule 09/06/19 Unknown Rx [Macrobid CAP] metroNIDAZOLE [Flagyl TAB] 500 mg PO Q12HR #14 tab 09/06/19 Unknown Rx Docusate Sodium [Colace CAP] 100 mg PO BID #30 capsule 03/08/20 Unknown Rx Ondansetron [Zofran ODT TAB] 4 mg PO Q8HR PRN #12 tab.rapdis 03/08/20 Unknown Rx Doxylamine Succinate/Vit B6 1 each PO BID #20 tablet. 06/20/21 Unknown Rx [Doxylamine-Pyridoxine 10-10 mg] Allergies Allergy/AdvReac Type Severity Reaction Status Date / Time Penicillins AdvReac Hives Verified 03/08/20 14:21 ED Review of Systems ROS: Stated complaint: ABD PAIN/VOMITTING Other details as noted in HPI Other: GENERAL: Negative for fever, chills, weight change, anorexia, fatigue. ENT: Negative for ear pain, difficulty hearing, sore throat, nasal congestion, epistaxis. CARDIOVASCULAR: Negative for chest pain, palpitations, lower extremity swelling. PULMONARY: Negative for cough, dyspnea, wheezing, orthopnea, cyanosis. GASTROINTESTINAL: Negative for abdominal pain, nausea, vomiting, diarrhea, constipation. MUSCULOSKELETAL: Positive for abdominal pain, nausea, vomiting. NEUROLOGICAL: Negative for headache, seizure, syncope, paresthesias, weakness. INTEGUMENTARY: Negative for erythema, rash, diaphoresis, laceration, ecchymosis. HEMATOLOGICAL: Negative for hemoptysis, hematemesis, hematochezia, hematuria. PSYCHIATRIC: Negative for hallucinations, suicidal ideation, homicidal ideation, anxiety, depression. ED Past Medical Hx - Past Medical History Hx Hypertension: Yes - Surgical History Past Surgical History?: No - Social History Smoking Status: Never Smoker Substance Use Type: None - Medications Home Medications: Home Medications Medication Instructions Recorded Confirmed Last Taken Type Sulfamethoxazole/Trimethoprim 1 each PO BID #14 tablet 03/13/18 Unknown Rx [Bactrim DS TAB] Dicyclomine [Bentyl] 10 mg PO QID #15 capsule 08/18/18 Unknown Rx Ibuprofen [Motrin] 600 mg PO Q8H PRN #20 tablet 08/18/18 Unknown Rx Metoclopramide [Reglan] 10 mg PO BID PRN #20 tab 12/03/18 Unknown Rx 21/Iron Fu/Folic Acid 1 each PO DAILY #30 tablet 12/03/18 Unknown Rx [ Complete Caplet] Doxycycline Hyclate [Doxycycline 100 mg PO BID 7 Days #14 tab 02/03/19 Unknown Rx Hyclate TAB] Nitrofurantoin [place]/M-Cryst 100 mg PO Q12HR #14 capsule 09/06/19 Unknown Rx [Macrobid CAP] metroNIDAZOLE [Flagyl TAB] 500 mg PO Q12HR #14 tab 09/06/19 Unknown Rx Docusate Sodium [Colace CAP] 100 mg PO BID #30 capsule 03/08/20 Unknown Rx Ondansetron [Zofran ODT TAB] 4 mg PO Q8HR PRN #12 tab.rapdis 03/08/20 Unknown Rx Doxylamine Succinate/Vit B6 1 each PO BID #20 tablet. 06/20/21 Unknown Rx [Doxylamine-Pyridoxine 10-10 mg] ED Physical Exam - General Limitations: No Limitations - Other Other exam information: General: Awake and alert. No acute distress. Head: Atraumatic, normocephalic. Eyes: EOMI. Pupils are equal and round. Normal sclera and conjunctiva. ENT: Oral mucosa is moist. Normal pharyngeal exam. Neck: Supple. No lymphadenopathy. Pulmonary: No respiratory distress. Clear to auscultation bilaterally. Cardiac: Regular rate and rhythm. Pulses are palpable and equal bilaterally. No lower extremity cyanosis or edema. Skin: Warm and dry. No rashes. Abdomen: Soft, non-protuberant. Diffuse abdominal tenderness without guarding, rigidity, or rebound. Bowel sounds are normal. No organomegaly or masses noted. Back: Normal alignment. No CVA tenderness. Extremities: Symmetrical. Full range of motion intact. Neurological: Alert and oriented, appropriately interactive, no focal deficits. Psych: Cooperative. Appropriate mood and affect. Speech is evenly metered. Thoughts are logically construed. ED Course Vital Signs 06/20/21 18:05 Temperature 98.3 F Pulse Rate 66 Respiratory 16 Rate Blood Pressure 132/70 O2 Sat by Pulse 100 Oximetry ED Medical Decision Making - Lab Data Result diagrams: 06/20/21 18:29 06/20/21 18:29 - Medical Decision Making Differential diagnosis including but not limited to: urinary tract infection, pyelonephritis, , dehydration, electrolyte abnormality, appendicitis, pancreatitis, pelvic inflammatory disease, ovarian cyst/torsion Labs are unremarkable except for serum hCG of > 40,000. Rh positive with no vaginal bleeding reported. Urinalysis without signs of infection. Care of patient transferred to Simon Dillard PA-C at change of shift for final disposition pending ultrasound results. Anticipate discharge home. Critical care attestation.: If time is entered above; I have spent that time in minutes in the direct care of this critically ill patient, excluding procedure time. ED Disposition Clinical Impression: Nausea/vomiting in Disposition: 01 HOME / SELF CARE / HOMELESS Is pt being admited?: No Does the pt Need Aspirin: No Condition: Stable Instructions: Abdominal Pain (ED), Morning Sickness, [id number] Additional Instructions: Take vitamins as directed. Take Doxylamine-Pyridoxine as directed for nausea/vomiting. Please avoid smoking, drugs, caffeine, and alcohol. Eat a well-balanced diet. Do not eat shellfish. Drink plenty of fluids. Follow up with [facility] this week. Call tomorrow to schedule an appointment. See referral information below. Do not take anything except Tylenol for pain without consulting your SCREEN PRINTER. Return to the Emergency Department for severe abdominal pain, loss of fluid, vaginal bleeding, dehydration, or any other concerns. Prescriptions: Doxylamine Succinate/Vit B6 [Doxylamine-Pyridoxine 10-10 mg] 1 each PO BID #20 tablet.dr Referrals: [facility] [Provider Group] - 3-5 Days
[2021-06-20 18:39] LABS: Basophils # (Auto) 0.1 K/mm3 (0.0-0.1); Eosinophils # (Auto) 0.2 K/mm3 (0.0-0.4); Eosinophils % (Auto) 4.4 % (0.0-4.3); Hematocrit 35.5 % (30.3-42.9); Hemoglobin 11.6 gm/dl (10.1-14.3); Lymphocytes # (Auto) 1.7 K/mm3 (1.2-5.4); Mean Corpuscular HGB Conc 33 % (30-34); Mean Corpuscular Volume 78 fl (79-97); Monocytes # (Auto) 0.5 K/mm3 (0.0-0.8); Monocytes % (Auto) 10.3 % (0.0-7.3); Platelet Count 216 K/mm3 (140-440); Red Blood Count 4.54 M/mm3 (3.65-5.03); Red Cell Distribution Width 13.9 % (13.2-15.2)
[2021-06-20 19:01] LABS: Bilirubin,Urine NEG (Negative); Blood,Urine NEG (Negative); Color,Urine Yellow (Yellow); Mucus,Urine FEW /HPF; RBC,Urine < 1.0 /HPF (0.0-6.0); Urobilinogen,Urine < 2.0 mg/dL (<2.0)
[2021-06-20 19:02] LABS: Alanine Aminotransferase 17 units/L (7-56); BUN/Creatinine Ratio 15; Blood Urea Nitrogen 15 mg/dL (7-17); Calcium 9.2 mg/dL (8.4-10.2); Hemolysis Index 6
[2021-06-20 19:02] LABS: WBC,Urine < 1.0 /HPF (0.0-6.0)
--- NOTE | 2021-06-20 22:30 | Ultrasound Report ---
ULTRASOUND OBSTETRIC INDICATION / CLINICAL INFORMATION: (+) HCG. Clinical Gestational Age (GA): 6 weeks 4 days TECHNIQUE: Transabdominal. COMPARISON: None available. FINDINGS: GESTATIONAL SAC: Well-defined oval shape and intrauterine in location. Gestational sac has a mean sac diameter of 23.5 mm which would correspond to a 7 week 3 day gestational age. YOLK SAC: Not visualized. EMBRYO/FETUS: Not present ADNEXA: No significant abnormality. Both ovaries are well-visualized and appear unremarkable. FREE FLUID: None. ADDITIONAL FINDINGS: None. IMPRESSION: 1. There is an oval fluid collection within the endometrium measuring 2.5 cm in greatest diameter. Th e fluid collection does not contain a yolk sac or pole and is most consistent with a blighted o vum. Clinical correlation recommended. 2. Both ovaries are unremarkable. Signer Name: Mimi López MD Signed: 06/20/2021 10:26 PM Workstation Name: [id number]
[2021-06-20 23:07] VITALS: BP 138/85
== END 2021-06-20 23:11 | disposition home or self-care (01) ==
LOC: ED 17:40
DX: O21.9 Vomiting of pregnancy, unspecified (principal); O26.891 Other specified pregnancy related conditions, first trimester; R10.84 Generalized abdominal pain; I10 Essential (primary) hypertension; Z79.899 Other long term (current) drug therapy; Z88.0 Allergy status to penicillin; Z3A.01 Less than 8 weeks gestation of pregnancy
CPT/HCPCS: 36415; 76801; 80053; 81001; 83690; 83735; 84702; 85025; 86900; 86901; 99284

== ENCOUNTER 2021-12-21 09:48 | Emergency (ER) | payer MEDICAID, OTHER ==
[2021-12-21 09:58] VITALS: BP 134/91
[2021-12-21 11:46] LABS: HCG Qualitative,Urine Negative (Negative)
[2021-12-21 11:47] LABS: Bilirubin,Urine NEG (Negative); Blood,Urine NEG (Negative); Color,Urine Yellow (Yellow); Mucus,Urine 1+ /HPF
--- NOTE | 2021-12-21 11:47 | Emergency Department Report ---
ED Dysuria HPI - HPI Chief Complaint: Abdominal Pain Stated Complaint: PAIN LOWER STOMACH Time Seen by Provider: 12/21/21 11:17 Duration: 2 Days Location of Discomfort: Other Symptoms: Dysuria: No, Frequency: No, Suprapubic Pain: No, Flank Pain: No, Fever: No, Hematuria: No, Abdominal Pain: No, Previous UTI's: No Other History: Patient is a 36-year-old female that comes to the emergency room with vaginal irritation. She thinks that it is just in response to soap that she is used. Last menstrual period the 30th of last month. She denies any vaginal discharge ED Review of Systems ROS: Stated complaint: PAIN LOWER STOMACH Other details as noted in HPI Comment: All other systems reviewed and negative ED Past Medical Hx - Past Medical History Previous Medical History?: Yes Hx Hypertension: Yes - Surgical History Past Surgical History?: No - Family History Family history: no significant - Social History Smoking Status: Never Smoker Substance Use Type: None - Medications Home Medications: Home Medications Medication Instructions Recorded Confirmed Last Taken Type Sulfamethoxazole/Trimethoprim 1 each PO BID #14 tablet 03/13/18 Unknown Rx [Bactrim DS TAB] Dicyclomine [Bentyl] 10 mg PO QID #15 capsule 08/18/18 Unknown Rx Ibuprofen [Motrin] 600 mg PO Q8H PRN #20 tablet 08/18/18 Unknown Rx Metoclopramide [Reglan] 10 mg PO BID PRN #20 tab 12/03/18 Unknown Rx 21/Iron Fu/Folic Acid 1 each PO DAILY #30 tablet 12/03/18 Unknown Rx [ Complete Caplet] Doxycycline Hyclate [Doxycycline 100 mg PO BID 7 Days #14 tab 02/03/19 Unknown Rx Hyclate TAB] Nitrofurantoin [place]/M-Cryst 100 mg PO Q12HR #14 capsule 09/06/19 Unknown Rx [Macrobid CAP] metroNIDAZOLE [Flagyl TAB] 500 mg PO Q12HR #14 tab 09/06/19 Unknown Rx Docusate Sodium [Colace CAP] 100 mg PO BID #30 capsule 03/08/20 Unknown Rx Ondansetron [Zofran ODT TAB] 4 mg PO Q8HR PRN #12 tab.rapdis 03/08/20 Unknown Rx Doxylamine Succinate/Vit B6 1 each PO BID #20 tablet. 06/20/21 Unknown Rx [Doxylamine-Pyridoxine 10-10 mg] Dysuria Exam - Exam General: Vital signs noted. No distress. Alert and acting appropriately. Exam: Yes Moist Mucous Membranes, No CVA Tenderness, No Abdominal Tenderness, No Rigidity or Guarding ED Course Vital Signs 12/21/21 09:56 Temperature 98.4 F Pulse Rate 80 Respiratory 18 Rate Blood Pressure 134/91 [Right] O2 Sat by Pulse 98 Oximetry ED Medical Decision Making - Medical Decision Making Labs 12/21/21 Unknown Urine Color Yellow Urine Turbidity Slightly-cloudy Urine pH 5.0 Ur Specific [place] 1.016 Urine Protein 100 mg/dl Urine Glucose (UA) Neg Urine Ketones Neg Urine Blood Neg Urine Nitrite Neg Ur Reducing Substances Not Reportable Urine Bilirubin Neg Urine Ictotest Not Reportable Urine Urobilinogen 2.0 Ur Leukocyte Esterase Sm Urine WBC (Auto) 3.0 Urine RBC (Auto) 1.0 U Epithel Cells (Auto) 9.0 Urine Mucus 1+ Urine HCG, Qual Negative UA noted. Small leuks with no nitrates. Patient has no dysuria. Pred negative. No abscess or lesions noted on labia. Patient being discharged home with discharge plan of care including diet, acti vity, medications and follow-up. She verbalizes understanding. - Differential Diagnosis Rule out UTI, UTI, STI, vaginitis Critical care attestation.: If time is entered above; I have spent that time in minutes in the direct care of this critically ill patient, excluding procedure time. ED Disposition Clinical Impression: Vaginal irritation Disposition: 01 HOME / SELF CARE / HOMELESS Is pt being admited?: No Does the pt Need Aspirin: No Condition: Stable Instructions: Vaginitis, [id number], Abdominal Pain (ED) Additional Instructions: Avoid harsh products and your known allergens. Avoid bubble baths Follow-up with [facility]. Referral below Referrals: JOVANY QUINTANA MD [Staff Physician] - 3-5 Days Time of Disposition: 12:23
== END 2021-12-21 13:21 | disposition home or self-care (01) ==
LOC: ED 09:48
DX: N76.89 Other specified inflammation of vagina and vulva (principal); I10 Essential (primary) hypertension
CPT/HCPCS: 81001; 81025; 99282